=== PATIENT | female | born 1950 | race Caucasian/White ===

== ENCOUNTER → 2018-04-25 | Outpatient (CLI) | payer MEDICARE, OTHER | END | disposition home or self-care (01) | LOC: LABWHC1 16:53 | PROVIDERS: ATTEND Physical Medicine & Rehabilitation | DX: M50.321 Other cervical disc degeneration at C4-C5 level (principal); M47.812 Spondylosis without myelopathy or radiculopathy, cervical region; M47.26 Other spondylosis with radiculopathy, lumbar region; R53.1 Weakness; R29.2 Abnormal reflex; I63.9 Cerebral infarction, unspecified; M54.5 Low back pain; Z68.30 Body mass index [BMI] 30.0-30.9, adult; Z87.891 Personal history of nicotine dependence | CPT/HCPCS: 36415; 82565; 84520 ==

== ENCOUNTER → 2018-05-06 | Outpatient (CLI) | payer MEDICARE, OTHER ==
--- NOTE | 2018-05-07 08:43 | MR ---
EXAMINATION TYPE: MR angio head wo/neck wo/w con DATE OF EXAM: 05/06/2018 COMPARISON: NONE HISTORY: Cerebral infarction, unspecified, stroke per order. TECHNIQUE: Time of flight images focusing on the [place] were performed without contrast.. 2-D and 3-D postprocessing imaging is performed on MRI scanner. Multiplanar, multisequence imaging of the neck focusing on carotid and vertebral arteries is performed without and with IV contrast, patie nt is injected with 7.5 cc for neck portion of study. FINDINGS: There is codominant vertebrobasilar system. There is no significant focal stenosis or aneur ysmal change in the posterior circulation. There is patent right posterior communicating artery and s maller caliber but patent left posterior communicating artery identified. Images of the anterior circulation show patent anterior communicating artery. There is no significant focal stenosis or aneurysmal change seen. There is normal three-vessel origin from aortic arch but poor contrast opacification at level of left common carotid artery origin, significant stenosis at this level is felt present. In fact cannot exc lude near complete or complete occlusion. There is motion artifact degradation making evaluation subo ptimal but no definitive contrast opacification at origin is identified on post contrast images for r eference image 120 series 701. Visualized portion of subclavian arteries show no significant stenosis . The right common carotid artery shows normal origin from the right brachiocephalic artery. There is no significant stenosis in the right common carotid artery. There is however significant stenosis hernandez spected at origin of right internal and external carotid arteries complete occlusion felt present at origin of right internal carotid artery as there is flow gap or nonvisualized flow image 108 series 7 01. There is significant stenosis estimated roughly 90% at origin of left external carotid artery ghanshyam ge 96 series 701 confirmed on MIP images. Remainder of right internal carotid artery shows no signifi cant stenosis. No significant stenosis in left common carotid artery after origin. Significant stenosis however felt present at left carotid bulb with perhaps trace flow at origin image 90 series 701. Remainder healthcare administration intern al carotid artery shows no significant stenosis. There is longer segment of nonvisualized flow or com plete occlusion of the left external carotid artery at its origin. Vertebral arteries show tortuosity but no significant stenosis. IMPRESSION: 1. Significant stenosis probable complete occlusion at origin of left common carotid artery. 2. Significant stenosis probable complete occlusion at origin of bilateral internal carotid arteries. Complete occlusion left external carotid artery over a longer segment at its origin. Significant alin nosis estimated 90% right external carotid artery at its origin. Patent vertebral basilar system with out significant stenosis noted. Advise neurosurgical referral and/or direct catheter angiogram to fur ther evaluate.
--- NOTE | 2018-05-07 18:27 | ECHOF ---
Referral Reason:M54.2 Cervicalgia MEASUREMENTS -------- HEIGHT: 154.9 cm WEIGHT: 72.6 kg BP: RVIDd: 2.6 cm (< 3.3) IVSd: 1.0 cm (0.6 - 1.1) LVIDd: 3.6 cm (3.9 - 5.3) LVPWd: 1.1 cm (0.6 - 1.1) IVSs: 1.3 cm LVIDs: 2.3 cm LVPWs: 1.3 cm LAESV Index (A-L): 18.35 ml/m Ao Diam: 2.8 cm (2.0 - 3.7) AV Cusp: 1.6 cm (1.5 - 2.6) LA Diam: 3.4 cm (2.7 - 3.8) EPSS: 0.2 cm MV E Carlton: 0.74 m/s MV DecT: 222 ms MV A Carlton: 0.81 m/s MV E/A Ratio: 0.92 RAP: 5.00 mmHg RVSP: 24.73 mmHg MV EF SLOPE: 57.42 mm/s (70 - 150) MV EXCURSION: 1.05 cm (> 18.000) FINDINGS -------- Sinus rhythm. This was a technically adequate study. The left ventricular size is normal. There is mild concentric left ventricular hypertrophy. Overa ll left ventricular systolic function is normal with, an EF between 55 - 60 %. The right ventricle is normal in size and function. Normal LA size by volume 22+/-6 ml/m2. The right atrium is normal in size. Aortic valve is trileaflet and is mildly thickened. Trace amount of aortic regurgitation. There is no evidence of aortic stenosis. The mitral valve leaflets are mildly thickened. Moderate mitral annular calcification present. Th ere is trace to mild mitral regurgitation. Trace tricuspid regurgitation present. Right ventricular systolic pressure is normal at < 35 mmHg. There is no evidence of pulmonary hypertension. Trace/mild (physiologic) pulmonic regurgitation. The aortic root size is normal. Normal inferior vena cava with normal inspiratory collapse consistent with estimated right atrial pre ssure of 5 mmHg. There is no pericardial effusion. CONCLUSIONS -------- 1. Sinus rhythm. 2. This was a technically adequate study. 3. The left ventricular size is normal. 4. There is mild concentric left ventricular hypertrophy. 5. Overall left ventricular systolic function is normal with, an EF between 55 - 60 %. 6. Normal LA size by volume 22+/-6 ml/m2. 7. Aortic valve is trileaflet and is mildly thickened. 8. Trace amount of aortic regurgitation. 9. There is no evidence of aortic stenosis. 10. The mitral valve leaflets are mildly thickened. 11. Moderate mitral annular calcification present. 12. There is trace to mild mitral regurgitation. 13. Trace tricuspid regurgitation present. 14. Right ventricular systolic pressure is normal at < 35 mmHg. 15. There is no evidence of pulmonary hypertension. 16. Trace/mild (physiologic) pulmonic regurgitation. 17. The aortic root size is normal. 18. There is no pericardial effusion. MATERNAL FETAL PHYSICIAN: Esau Winter RDCS
== END | disposition home or self-care (01) ==
LOC: RADMRIMAIN 12:52
PROVIDERS: ATTEND Physical Medicine & Rehabilitation
DX: I65.23 Occlusion and stenosis of bilateral carotid arteries (principal); I34.0 Nonrheumatic mitral (valve) insufficiency; I37.1 Nonrheumatic pulmonary valve insufficiency; I51.7 Cardiomegaly; M62.81 Muscle weakness (generalized); R29.2 Abnormal reflex; F17.218 Nicotine dependence, cigarettes, with other nicotine-induced disorders
CPT/HCPCS: 93306; 70544; 70549; A9585

== ENCOUNTER → 2018-05-28 | Outpatient (CLI) | payer MEDICARE, OTHER ==
[2018-05-28 18:17] LABS: LDL Cholesterol,Calculated 133.4 mg/dL (0.0-131.0); VLDL Calculation 30.6 mg/dL (5.00-40.00)
== END | disposition home or self-care (01) ==
LOC: LABWHC1 09:24
PROVIDERS: ATTEND Internal Medicine Cardiovascular Disease
DX: E78.2 Mixed hyperlipidemia (principal)
CPT/HCPCS: 36415; 80061; 84450; 84460